=== PATIENT | female | born 1990 | race Caucasian/White ===

== ENCOUNTER 2017-01-20 19:58 | Emergency (ER) | payer MEDICAID ==
[~2017-01-20] VITALS: Ht 162.6 cm; Wt 70.3 kg
[~2017-01-20 19:58] MED LIST: LISI10TA6
[2017-01-20 20:39] LABS: Urine Bilirubin Negative (Negative); Urine Color Red (Yellow); Urine Glucose Normal (Normal); Urine Ketone Negative (Negative); Urine Mucus FEW (None Seen); Urine Nitrite Negative (Negative); Urine RBC 4035 /hpf (0 - 4); Urine Urobilinogen Normal (Negative)
[2017-01-20 20:40] LABS: Urine Blood 3+ /uL (Negative)
[2017-01-20 21:16] LABS: Basophils # (auto) 0 uL; Basophils % (auto) 0.4 % (0.0-2.0); CONDITION Y; Eosinophils # (auto) 0.2 uL; Eosinophils % (auto) 2.3 % (0.0-7.0); Hematocrit 39.4 % (36.0-46.0); Hemoglobin 13.4 g/dL (12.2-16.2); Lymphocytes # (auto) 2.2 uL; Lymphocytes % (auto) 27.8 % (10.0-50.0); Mean Corpuscular Hemoglobin 29.5 pg (28.0-32.0); Mean Corpuscular Hgb Conc. 33.9 g/dL (32.0-36.0); Mean Platelet Volume 7.9 fL (7.4-10.4); Monocytes # (auto) 0.5 uL; Monocytes % (auto) 6.4 % (0.0-12.0); Neutrophils # (auto) 5.1 uL; Neutrophils % (auto) 63.1 % (37.0-80.0); Platelet Count (auto) 340 10^3/uL (140-450); Red Cell Distribution Width 12.8 % (11.6-16.0); White Blood Cell 8.1 10^3/uL (4.4-10.8)
[2017-01-20 21:37] LABS: Albumin 3.8 g/dL (3.4-5.0); BUN/Creatinine Ratio 15.4; Calcium 8.8 mg/dL (8.5-10.1); Potassium 3.6 mmol/L (3.5-5.1)
[2017-01-20 21:40] LABS: Bilirubin, Total 0.3 mg/dL (0.2-1.0); Total Protein 7.4 g/dL (6.4-8.2)
[2017-01-21 02:15] VITALS: BP 137/75
== END 2017-01-21 03:27 | disposition home or self-care (01) ==
LOC: ER 20:01
DX: O03.9 Complete or unspecified spontaneous abortion without complication (principal); Z3A.01 Less than 8 weeks gestation of pregnancy; Z79.899 Other long term (current) drug therapy
CPT/HCPCS: 36415; 76801; 76817; 80053; 81001; 83690; 83735; 84702; 85025

== ENCOUNTER → 2017-01-26 | Outpatient (CLI) | payer BC | END | disposition home or self-care (01) | LOC: LAB 10:56 | PROVIDERS: ATTEND Obstetrics & Gynecology | DX: O03.4 Incomplete spontaneous abortion without complication (principal) | CPT/HCPCS: 36415; 84702 ==

== ENCOUNTER → 2017-01-29 | Outpatient (CLI) | payer BC | END | disposition home or self-care (01) | LOC: LAB 09:51 | PROVIDERS: ATTEND Obstetrics & Gynecology | DX: O03.4 Incomplete spontaneous abortion without complication (principal) | CPT/HCPCS: 36415; 84702 ==

== ENCOUNTER → 2017-02-01 | Outpatient (CLI) | payer BC | END | disposition home or self-care (01) | LOC: LAB 15:28 | PROVIDERS: ATTEND Obstetrics & Gynecology | DX: O03.4 Incomplete spontaneous abortion without complication (principal) | CPT/HCPCS: 36415; 84702 ==

== ENCOUNTER → 2017-02-04 | Outpatient (CLI) | payer BC | END | disposition home or self-care (01) | LOC: LAB 15:47 | PROVIDERS: ATTEND Obstetrics & Gynecology | DX: O03.4 Incomplete spontaneous abortion without complication (principal) | CPT/HCPCS: 36415; 84702 ==

== ENCOUNTER → 2017-07-15 | Outpatient (CLI) | payer BC | END | disposition home or self-care (01) | LOC: LAB 13:46 | PROVIDERS: ATTEND Obstetrics & Gynecology | DX: N91.2 Amenorrhea, unspecified (principal) | CPT/HCPCS: 36415; 84702 ==

== ENCOUNTER → 2017-08-16 | Outpatient (CLI) | payer BC | END | disposition home or self-care (01) | LOC: LAB 08:49 | PROVIDERS: ATTEND Obstetrics & Gynecology | DX: N91.2 Amenorrhea, unspecified (principal) | CPT/HCPCS: 36415; 84702 ==

== ENCOUNTER → 2017-08-18 | Outpatient (CLI) | payer BC | END | disposition home or self-care (01) | LOC: LAB 08:04 | PROVIDERS: ATTEND Obstetrics & Gynecology | DX: N91.2 Amenorrhea, unspecified (principal) | CPT/HCPCS: 36415; 84702 ==

== ENCOUNTER → 2017-08-31 | Outpatient (CLI) | payer BC | END | disposition home or self-care (01) | LOC: LAB 15:06 | PROVIDERS: ATTEND Specialist | DX: N39.0 Urinary tract infection, site not specified (principal) | CPT/HCPCS: 87086 ==

== ENCOUNTER → 2017-09-21 | Outpatient (CLI) | payer BC ==
[2017-09-21 11:43] LABS: Alcohol, Urine < 3.0 mg/dL (0-5); Amphetamine Screen, Urine NEGATIVE (NEGATIVE); Barbiturate Scree,Urine NEGATIVE (NEGATIVE); Benzodiazephine Screen, Urine NEGATIVE (NEGATIVE); Cannabinoid Screen, Urine NEGATIVE (NEGATIVE); Cocaine Screen, Urine NEGATIVE (NEGATIVE); Opiate Scree,Urine NEGATIVE (NEGATIVE); Phencyclidine Screen, Urine NEGATIVE (NEGATIVE)
[2017-09-21 13:47] LABS: Basophils # (auto) 0 uL; Basophils % (auto) 0.4 % (0.0-2.0); Eosinophils # (auto) 0.1 uL; Eosinophils % (auto) 1.1 % (0.0-7.0); Hematocrit 40.9 % (36.0-46.0); Hemoglobin 13.9 g/dL (12.2-16.2); Lymphocytes # (auto) 1.1 uL; Lymphocytes % (auto) 12.2 % (10.0-50.0); Mean Corpuscular Hemoglobin 30.2 pg (28.0-32.0); Mean Corpuscular Volume 88.8 fL (80.0-100.0); Monocytes # (auto) 0.3 uL; Monocytes % (auto) 3.6 % (0.0-12.0); Neutrophils # (auto) 7.8 uL; Neutrophils % (auto) 82.7 % (37.0-80.0); Platelet Count (auto) 330 10^3/uL (140-450); Red Blood Cells 4.61 10^6/uL (4.0-5.20); White Blood Cell 9.4 10^3/uL (4.4-10.8)
[2017-09-22 05:07] LABS: RPR Non Reactive (Non Reactive)
== END | disposition home or self-care (01) ==
LOC: LAB 10:24
PROVIDERS: ATTEND Specialist
DX: Z34.80 Encounter for supervision of other normal pregnancy, unspecified trimester (principal); Z31.430 Encounter of female for testing for genetic disease carrier status for procreative management; Z36.9 Encounter for antenatal screening, unspecified; Z3A.00 Weeks of gestation of pregnancy not specified
CPT/HCPCS: 36415; 80307; 81220; 83036; 84702; 85025; 86592; 86703; 86762; 86850; 86900; 86901; 87086; 87340

== ENCOUNTER → 2017-10-12 | Outpatient (CLI) | payer BC ==
[2017-10-12 16:04] LABS: 24 Hr. Total Protein, Urine 218.6 mg/24 Hr (<149.1); Creatinine Clearance, Urine 159.3 mL/min (75-115); Creatinine, Urine 69.5 mg/dL (30.0-125.0); Protein, Urine 11.1 mg/dL (0.0-11.9)
== END | disposition home or self-care (01) ==
LOC: LAB 14:04
PROVIDERS: ATTEND Specialist
DX: O10.911 Unspecified pre-existing hypertension complicating pregnancy, first trimester (principal); Z3A.00 Weeks of gestation of pregnancy not specified
CPT/HCPCS: 82575; 84156

== ENCOUNTER → 2018-01-19 | Outpatient (CLI) | payer BC ==
[2018-01-19 09:36] LABS: Basophils # (auto) 0 uL; Basophils % (auto) 0.3 % (0.0-2.0); Eosinophils # (auto) 0.3 uL; Eosinophils % (auto) 1.9 % (0.0-7.0); Hematocrit 33.8 % (36.0-46.0); Hemoglobin 11.3 g/dL (12.2-16.2); Lymphocytes # (auto) 1.4 uL; Lymphocytes % (auto) 9.7 % (10.0-50.0); Mean Corpuscular Hemoglobin 29.5 pg (28.0-32.0); Mean Corpuscular Hgb Conc. 33.4 g/dL (32.0-36.0); Mean Corpuscular Volume 88.3 fL (80.0-100.0); Monocytes # (auto) 0.6 uL; Monocytes % (auto) 4.1 % (0.0-12.0); Neutrophils # (auto) 11.7 uL; Platelet Count (auto) 295 10^3/uL (140-450); Red Blood Cells 3.82 10^6/uL (4.0-5.20); Red Cell Distribution Width 12.6 % (11.8-14.3)
[2018-01-19 09:54] LABS: BUN/Creatinine Ratio 12.7; Bilirubin, Total 0.3 mg/dL (0.2-1.0); Calcium 8.3 mg/dL (8.5-10.1); Potassium 3.7 mmol/L (3.5-5.1); Total Protein 6.9 g/dL (6.4-8.2)
== END | disposition home or self-care (01) ==
LOC: LAB 08:28
PROVIDERS: ATTEND Specialist
DX: O99.810 Abnormal glucose complicating pregnancy (principal); O16.9 Unspecified maternal hypertension, unspecified trimester; R74.0 Nonspecific elevation of levels of transaminase and lactic acid dehydrogenase [LDH]; Z3A.00 Weeks of gestation of pregnancy not specified
CPT/HCPCS: 36415; 80053; 82951; 84443; 85025

== ENCOUNTER 2018-01-22 03:33 | Emergency (ER) | payer BC ==
[~2018-01-22] VITALS: Ht 165.1 cm; Wt 74.8 kg
[2018-01-22 03:43] VITALS: BP 149/75
== END 2018-01-22 05:13 | disposition left against medical advice (07) ==
LOC: ER 03:33
DX: O26.892 Other specified pregnancy related conditions, second trimester (principal); R07.89 Other chest pain; Z53.21 Procedure and treatment not carried out due to patient leaving prior to being seen by health care provider; Z3A.27 27 weeks gestation of pregnancy
CPT/HCPCS: 93005

== ENCOUNTER → 2018-03-22 | Outpatient (CLI) | payer BC ==
[~2018-03-22] MED LIST changes: +LABE100T PO; +PREN-145 OR
[2018-03-22 10:54] LABS: Basophils # (auto) 0 uL; Basophils % (auto) 0.3 % (0.0-2.0); Eosinophils # (auto) 0.2 uL; Eosinophils % (auto) 1.7 % (0.0-7.0); Hemoglobin 11.9 g/dL (12.2-16.2); Lymphocytes # (auto) 1.4 uL; Lymphocytes % (auto) 13.6 % (10.0-50.0); Mean Corpuscular Hgb Conc. 33.9 g/dL (32.0-36.0); Mean Corpuscular Volume 82.6 fL (80.0-100.0); Monocytes # (auto) 0.5 uL; Monocytes % (auto) 5.2 % (0.0-12.0); Neutrophils # (auto) 8.1 uL; Neutrophils % (auto) 79.2 % (37.0-80.0); Platelet Count (auto) 269 10^3/uL (140-450); Red Blood Cells 4.24 10^6/uL (4.0-5.20); White Blood Cell 10.2 10^3/uL (4.4-10.8)
[2018-03-23 05:06] LABS: RPR Non Reactive (Non Reactive)
== END | disposition home or self-care (01) ==
LOC: LAB 09:54
PROVIDERS: ATTEND Specialist
DX: O23.593 Infection of other part of genital tract in pregnancy, third trimester (principal); Z3A.35 35 weeks gestation of pregnancy
CPT/HCPCS: 36415; 83036; 85025; 86592; 87081

== ENCOUNTER → 2018-04-01 | Outpatient (CLI) | payer BC | END | disposition home or self-care (01) | LOC: Rad HDHVI 14:59 | PROVIDERS: ATTEND Internal Medicine Cardiovascular Disease | DX: O14.93 Unspecified pre-eclampsia, third trimester (principal); R00.2 Palpitations; Z3A.36 36 weeks gestation of pregnancy | CPT/HCPCS: 93306 ==

== ENCOUNTER 2018-04-02 00:38 | Inpatient (IN) | payer BC ==
[~2018-04-02] VITALS: Ht 165.1 cm; Wt 77.6 kg
[~2018-04-02 00:38] MED LIST changes: -LABE100T PO; -PREN-145 OR
[2018-04-02] MEDS ORDERED: NALBUPHINE HCL 10 MG/1ml INJECTION IV ONE (01:45)
[2018-04-02] MEDS ORDERED: NALBUPHINE HCL 10 MG/1ml INJECTION ONE (02:08)
[2018-04-02] MEDS ORDERED: PROMETHAZINE HCL 25 MG/ML 1ML ONE (02:08)
[2018-04-02] MEDS ORDERED: LACT. RINGERS/OXYTOCIN 20UNITS 1,000 ML IV ONE (02:25)
[2018-04-02] MEDS ORDERED: LIDOCAINE 2% (LOCAL ANESTH.) PF 5ml SDV ONE (02:27)
[2018-04-02 02:29] LABS: Mean Corpuscular Volume 81.4 fL (80.0-100.0)
[2018-04-02 02:30] LABS: Basophils # (auto) 0 uL; Basophils % (auto) 0.2 % (0.0-2.0); Eosinophils # (auto) 0.2 uL; Hematocrit 35.7 % (36.0-46.0); Hemoglobin 11.8 g/dL (12.2-16.2); Lymphocytes # (auto) 1.7 uL; Lymphocytes % (auto) 10.1 % (10.0-50.0); Mean Corpuscular Hgb Conc. 33.2 g/dL (32.0-36.0); Monocytes # (auto) 0.8 uL; Monocytes % (auto) 4.6 % (0.0-12.0); Neutrophils # (auto) 14.1 uL; Neutrophils % (auto) 84.1 % (37.0-80.0); Platelet Count (auto) 328 10^3/uL (140-450); Red Blood Cells 4.38 10^6/uL (4.0-5.20); Red Cell Distribution Width 13.3 % (11.8-14.3); White Blood Cell 16.7 10^3/uL (4.4-10.8)
[2018-04-02 02:47] LABS: INR 0.87 (0.9-1.15); Partial Thromboplastin Time 28.4 sec (23.78-33.04); Prothrombin Time 9.4 sec (9.27-12.13)
[2018-04-02 02:48] LABS: Calcium 8.8 mg/dL (8.5-10.1); Potassium 3.7 mmol/L (3.5-5.1)
[2018-04-02 02:50] LABS: Bilirubin, Total 0.5 mg/dL (0.2-1.0); Total Protein 7.5 g/dL (6.4-8.2)
[2018-04-02 03:06] LABS: Uric Acid 5.3 mg/dL (2.6-6.0)
[2018-04-02] MEDS ORDERED: IBUPROFEN 600 MG TAB PO PRN (03:30)
[2018-04-02] MEDS ORDERED: LACTATED RINGER'S 1,000 ML IV SCH (05:06)
[2018-04-02] MEDS ORDERED: LACT. RINGERS/OXYTOCIN 20UNITS 1,000 ML IV SCH (05:06)
[2018-04-02] MEDS ORDERED: PHISODERM TOP SOLN 240ML BTL TOP PRN (05:15)
[2018-04-02] MEDS ORDERED: PROMETHAZINE HCL 25 MG/ML 1ML IV PRN (05:15)
[2018-04-02] MEDS ORDERED: NALBUPHINE HCL 10 MG/1ml INJECTION IM PRN (05:15)
[2018-04-02] MEDS ORDERED: WITCH HAZEL-GLYCERIN PAD TOP PRN (05:15)
[2018-04-02 07:05] VITALS: BP 115/56
[2018-04-02] MEDS ORDERED: LABE100T PO (07:15)
[2018-04-02] MEDS ORDERED: PREN-145 OR (07:15)
[2018-04-02] MEDS: DOCUSATE CALCIUM 240 MG CAP PO SCH (10:15)
[2018-04-02 11:00] VITALS: BP 122/65
[2018-04-02 15:00] VITALS: BP 130/68
[2018-04-02 21:31] LABS: Urine Bacteria MOD /hpf (None Seen); Urine Blood 3+ /uL (Negative); Urine Mucus FEW (None Seen); Urine Specific Gravity 1.015 (1.001-1.035); Urine WBC 41 /hpf (0 - 5)
[2018-04-02 21:34] LABS: Alcohol, Urine < 3.0 mg/dL (0-5); Amphetamine Screen, Urine NEGATIVE (NEGATIVE); Barbiturate Scree,Urine NEGATIVE (NEGATIVE); Benzodiazephine Screen, Urine NEGATIVE (NEGATIVE); Cannabinoid Screen, Urine NEGATIVE (NEGATIVE); Cocaine Screen, Urine NEGATIVE (NEGATIVE); Opiate Scree,Urine NEGATIVE (NEGATIVE); Phencyclidine Screen, Urine NEGATIVE (NEGATIVE)
[2018-04-02 23:00] VITALS: BP 140/88
[2018-04-03 03:00] VITALS: BP 136/74
[2018-04-03 07:00] VITALS: BP 119/85
[2018-04-03 08:08] LABS: RPR Non Reactive (Non Reactive)
[2018-04-03] MEDS: DOCUSATE CALCIUM 240 MG CAP PO SCH (10:38)
[2018-04-03 11:04] VITALS: BP 122/87
== END 2018-04-03 10:50 | disposition home or self-care (01) | DRG 775 ==
LOC: LDRP 00:38 → OBSVTOIN 00:38 → LDRP 09:22
PROVIDERS: ADMIT Obstetrics & Gynecology; ATTEND Obstetrics & Gynecology
PROC: 10E0XZZ Delivery of Products of Conception, External Approach (ICD-10-PCS; principal; 2018-04-02)
PROC: 10907ZC Drainage of Amniotic Fluid, Therapeutic from Products of Conception, Via Natural or Artificial Opening (ICD-10-PCS; 2018-04-02)
DX: O69.81X0 Labor and delivery complicated by cord around neck, without compression, not applicable or unspecified (principal); Z3A.37 37 weeks gestation of pregnancy; Z37.0 Single live birth
CPT/HCPCS: 36415; 59025; 59409; 80053; 80307; 81001; 84550; 85025; 85610; 85730; 86592; 86850; 86900; 86901; 96360; 96361; 96365; 96366; 96374; G0378; J2001; J2590